=== PATIENT | female | born 1955 | race Caucasian/White ===

== ENCOUNTER 2018-01-08 07:43 | Observation (INO) ==
[2018-01-08] MEDS ORDERED: IOPAMIDOL 100 ML BOTTLE IV ONE (07:44)
--- NOTE | 2018-01-08 08:07 | Emergency Department Note ---
Altered Mental Status HPI - General Chief Complaint: Altered Mental Status Stated Complaint: Altered Mental Time Seen by Provider: 01/08/18 08:04 Source: patient Mode of arrival: ambulatory Limitations: no limitations - History of Present Illness HPI Narrative: This patient THIS morning with slurred speech and left facial droop. She has no other muscle weakness. She does have little numbness left side of her face. She does have a history of seizure disorders but has not had a seizure that her is aware of. Also has a history of cirrhosis and hepatitis C which was treated and may have been cured. - Related Data Home Medications Medication Instructions Recorded Confirmed Zonisamide [Zonegran] 600 mg PO QHS 01/08/18 01/08/18 Allergies Allergy/AdvReac Type Severity Reaction Status Date / Time ibuprofen Allergy Intermediate Hives Verified 01/08/18 07:48 IV contrast Allergy Severe Anaphylaxis Uncoded 01/08/18 07:48 Review of Systems All systems ED: reviewed and negative except as stated. Past Medical History - Past Medical History Medical history: Reports: liver disease (Hepatitis C and cirrhosis), seizures - Social History smoking status: Current every day smoker Physical Exam Limitations: no limitations General appearance: alert Head: atraumatic, normocephalic Eye: Present: normal appearance ENT: normal exam Neck: Present: normal inspection Chest: Present: normal inspection Respiratory: Present: normal lung sounds bilaterally Cardiovascular: Present: regular rate, normal rhythm, normal heart sounds Abdominal: Present: soft. Absent: distention, tenderness Neurological: Present: alert Cranial nerves: facial sensation (V): Abnormal Right, facial palsy (VII): Abnormal Right Motor strength - LUE: 5/5 Motor strength - RUE: 5/5 Motor strength - LLE: 5/5 Motor strength - RLE: 5/5 Psychiatric: Present: normal affect, normal mood Skin: Present: warm, dry, intact Course Vital Signs Respiratory Rate 24 H 01/08/18 07:44 Blood Pressure 152/90 01/08/18 07:44 Pulse Oximetry (%) 93 01/08/18 07:44 Respiratory Rate 24 H 01/08/18 07:44 Blood Pressure 152/90 01/08/18 07:51 Pulse Oximetry (%) 93 01/08/18 07:44 Altered Mental Status - MDM Narrative Medical decision making narrative: Patient's initial head CT was normal. Initially plan to do a CTA of head and neck that she has some sort of iodine allergy. We then attempted to do MRA MRI but she has a broken wire in her neck from a previous nerve stimulator and the radiologist feels uncomfortable doing that. So we will pretreat her with Solu- Medrol and Benadryl attempt to do the CTA of head and neck. Final disposition of this patient per Dr. Mireles. - Lab Data Result diagrams: 01/08/18 08:05 01/08/18 08:05 Lab Results 01/08/18 01/08/18 01/08/18 Range/Units 08:05 08:05 08:05 WBC 9.2 (4.5-11.0) K/mcL RBC 5.13 (4.00-5.20) M/mcL Hgb 14.7 (12.0-15.0) g/dL Hct 44.0 (36.0-48.0) % POC Hct 45.0 (36.0-48.0) % MCV 85.7 (80.0-100.0) fL MCH 28.7 (26.0-34.0) pg MCHC 33.5 (31.0-36.0) g/dL RDW 13.0 (11.5-14.5) % Plt Count 222 (140-440) K/mcL MPV 8.8 (7.4-10.4) fL Gran % 48.2 (38.0-78.0) % Lymph % (Auto) 38.7 (15.5-49.0) % [place] % (Auto) 11.0 (1.0-12.0) % Eos % (Auto) 1.5 (0.0-7.0) % Baso % (Auto) 0.6 (0.0-2.0) % Gran # 4.4 (1.8-8.0) K/mcL Lymph # (Auto) 3.6 (1.5-4.8) K/mcL [place] # (Auto) 1.0 H (0.1-0.9) K/mcL Eos # (Auto) 0.1 (0.0-0.7) K/mcL Baso # (Auto) 0.1 (0.0-0.3) K/mcL POC PT 13.5 (11.9-14.5) sec POC INR 1.1 (0.9-1.2) APTT TNP POC Sodium 144 (133-145) mmol/L Sodium 142 (133-145) mmol/L POC Potassium 4.7 (3.3-5.1) mmol/L Potassium 4.8 (3.3-5.1) mmol/L POC Chloride 105 (96-108) mmol/L Chloride 105 (96-108) mmol/L Carbon Dioxide 25 (22-30) mmol/L POC Total CO2 27 (22-30) mmol/L Anion Gap 12.0 (8-16) POC BUN 12 (8-23) mg/dl BUN 12 (8-23) mg/dl Creatinine 0.7 (0.6-1.1) mg/dl POC Creatinine 0.7 (0.6-1.1) mg/dl GFR Calculation 94 Glucose 107 H (70-105) mg/dL POC Glucose 110 H (70-105) mg/dL Calcium 9.7 (8.6-10.4) mg/dl POC WB Ioniz Calcium 1.17 (1.16-1.32) mmol/L Total Bilirubin 0.2 (0.0-1.0) mg/dL AST 23 (0-37) U/l ALT 23 (0-40) U/l Alkaline Phosphatase 80 (39-117) U/L Troponin T (0-0.03) ng/ml Total Protein 7.8 (5.9-8.4) gm/dL Albumin 4.1 (3.2-5.2) gm/dL Globulin 3.7 (2.2-3.7) gm/dL Albumin/Globulin Ratio 1.1 (1.0-2.3) 01/08/18 Range/Units 08:05 WBC (4.5-11.0) K/mcL RBC (4.00-5.20) M/mcL Hgb (12.0-15.0) g/dL Hct (36.0-48.0) % POC Hct (36.0-48.0) % MCV (80.0-100.0) fL MCH (26.0-34.0) pg MCHC (31.0-36.0) g/dL RDW (11.5-14.5) % Plt Count (140-440) K/mcL MPV (7.4-10.4) fL Gran % (38.0-78.0) % Lymph % (Auto) (15.5-49.0) % [place] % (Auto) (1.0-12.0) % Eos % (Auto) (0.0-7.0) % Baso % (Auto) (0.0-2.0) % Gran # (1.8-8.0) K/mcL Lymph # (Auto) (1.5-4.8) K/mcL [place] # (Auto) (0.1-0.9) K/mcL Eos # (Auto) (0.0-0.7) K/mcL Baso # (Auto) (0.0-0.3) K/mcL POC PT (11.9-14.5) sec POC INR (0.9-1.2) APTT POC Sodium (133-145) mmol/L Sodium (133-145) mmol/L POC Potassium (3.3-5.1) mmol/L Potassium (3.3-5.1) mmol/L POC Chloride (96-108) mmol/L Chloride (96-108) mmol/L Carbon Dioxide (22-30) mmol/L POC Total CO2 (22-30) mmol/L Anion Gap (8-16) POC BUN (8-23) mg/dl BUN (8-23) mg/dl Creatinine (0.6-1.1) mg/dl POC Creatinine (0.6-1.1) mg/dl GFR Calculation Glucose (70-105) mg/dL POC Glucose (70-105) mg/dL Calcium (8.6-10.4) mg/dl POC WB Ioniz Calcium (1.16-1.32) mmol/L Total Bilirubin (0.0-1.0) mg/dL AST (0-37) U/l ALT (0-40) U/l Alkaline Phosphatase (39-117) U/L Troponin T < 0.01 (0-0.03) ng/ml Total Protein (5.9-8.4) gm/dL Albumin (3.2-5.2) gm/dL Globulin (2.2-3.7) gm/dL Albumin/Globulin Ratio (1.0-2.3) Disposition Pt seen by [facility]ON [facility]ENDER/PA only: No Clinical Impression: Cerebrovascular accident Disposition: Still a Patient
--- NOTE | 2018-01-08 08:08 | Cat Scan Report ---
CLINICAL INFORMATION: Code stroke has altered mental status COMPARISON: None. TECHNIQUE: 2.5 mm helical slices were obtained in the skull base to vertex. Following reconstruction, axial reformatted images were reviewed at bone and parenchymal windows. The exam was performed using radiation dose optimization techniques including, but not limited to, automated exposure control, adjustment of the mA and/or kV according to patient size and use of iterative reconstruction technique. FINDINGS: The ventricles, sulci, fissures, and cisterns are normal in size and configuration for age. No extra-axial fluid collections are identified. The cerebrum, brainstem and cerebellum are unremarkable. There is no evidence of hemorrhage, mass effect, or edema. Bone windows show no osseous abnormality. IMPRESSION: Normal head CT without contrast. Interpreted and Authenticated by: Donovan Ko 01/08/18
[2018-01-08 08:39] LABS: Basophils # (Auto) 0.1 K/mcL (0.0-0.3); Basophils % (Auto) 0.6 % (0.0-2.0); Eosinophils # (Auto) 0.1 K/mcL (0.0-0.7); Eosinophils % (Auto) 1.5 % (0.0-7.0); Granulocytes % (Auto) 48.2 % (38.0-78.0); Lymphocytes # (Auto) 3.6 K/mcL (1.5-4.8); Lymphocytes % (Auto) 38.7 % (15.5-49.0); Mean Cell Volume 85.7 fL (80.0-100.0); Mean Corpuscular HGB Conc 33.5 g/dL (31.0-36.0); Mean Corpuscular Hemoglobin 28.7 pg (26.0-34.0); Platelet Count 222 K/mcL (140-440); RBC 5.13 M/mcL (4.00-5.20)
[2018-01-08 08:59] LABS: ALT/SGPT 23 U/l (0-40); Albumin 4.1 gm/dL (3.2-5.2); Albumin/Globulin Ratio 1.1 (1.0-2.3); Alkaline Phosphatase 80 U/L (39-117); Blood Urea Nitrogen 12 mg/dl (8-23)
[2018-01-08] MEDS ORDERED: diphenhydrAMINE 50 MG/ML VIAL IV ONE (09:04)
[2018-01-08] MEDS ORDERED: methylPREDNISolone SOD SUCC 125 MG/2 ML VIAL IV ONE (09:04)
--- NOTE | 2018-01-08 09:17 | XRay Report ---
CLINICAL INFORMATION: History of vagal stimulator - removed. Prescreening for MRI COMPARISON: None. FINDINGS: There is a 4 cm wire fragment and two tiny electrodes in the left deep cervical soft tissues. They're located in the vicinity of the left common carotid artery. There are also an additional three 9 mm vague foreign bodies in this region of uncertain nature. No other abnormality IMPRESSION: Metallic foreign bodies in the left common carotid artery vicinity. This precludes the use of of MR Interpreted and Authenticated by: Donovan Ko 01/08/18
[2018-01-08] MEDS ORDERED: LORazepam 2 MG/ML VIAL ONE (09:38)
[2018-01-08] MEDS ORDERED: LORazepam 2 MG/ML VIAL IV ONE (09:43)
[2018-01-08 09:57] LABS: Appearance,Urine HAZY; Bilirubin,Urine NEG (NEG); Color,Urine YELLOW; Glucose,Urine (UA) NEGATIVE (NEG); Leukocyte Esterase,Urine NEG /uL (NEG); Protein,Urine NEG (NEG); Specific Gravity,Urine 1.018 (1.000-1.035); Urine Blood NEG mg/dL (<0.03)
[2018-01-08] MEDS ORDERED: ATORVASTATIN 40 MG TABLET PO ONE (10:17)
[2018-01-08] MEDS ORDERED: CLOPIDOGREL 75 MG TABLET PO ONE (10:17)
[2018-01-08 10:37] LABS: Amphetamine Screen,Urine NONE DETECTED (NONDETECTED); Benzodiazepines Screen,Urine NONE DETECTED (NONDETECTED); Cocaine Screen,Urine NONE DETECTED (NONDETECTED); Opiate Screen,Urine NONE DETECTED (NONDETECTED); Oxycodone, Urine Screen NONE DETECTED (NONDETECTED)
--- NOTE | 2018-01-08 11:40 | Cat Scan Report ---
CLINICAL INFORMATION: Confusion - stroke symptoms COMPARISON: None. TECHNIQUE: 80 cc of Isovue-300 were injected intravenously , and using SmartPrep to maximize cerebral arterial opacification, 0.625 mm helical slices were obtained from the skull base through the cerebral vertex. Following reconstruction , sagittal, coronal and axial reformatted images were processed and reviewed at multiple windows and levels. 3D volume rendered and MIP images were acquired at a independent workstation. The exam was performed using radiation dose optimization techniques including, but not limited to, automated exposure control, adjustment of the mA and/or kV according to patient size and use of iterative reconstruction technique. FINDINGS: Embryonic origin of both posterior cerebral arteries off the supraclinoid ICA noted. The intracranial internal carotid, anterior and middle cerebral, intracranial vertebral, basilar and posterior cerebral arteries and their branches are well opacified and normal in contour and caliber. Superficial/deep cerebral veins and deep venous sinuses are normal. IMPRESSION: Normal Interpreted and Authenticated by: Donovan Ko 01/08/18
--- NOTE | 2018-01-08 11:56 | Cat Scan Report ---
CLINICAL INFORMATION: Confusion and extremity weakness. Question CVA COMPARISON: None. TECHNIQUE: The patient was premedicated with 100 mg of Solu-Medrol and 50 mg of Benadryl given IV because of the possible history of reaction iodinated contrast. Please there is no reaction after this procedure. 80 cc of Isovue-300 were injected intravenously, and using SmartPrep to maximize arterial opacification, 0.625 mm helical slices were obtained from the thoracic aortic arch through the andreafski of [place]. Following reconstruction, 1.25 mm sagittal, coronal and axial reformatted images were processed and reviewed at standard and bone algorithm/window. 3-D volume rendered, CPR and MIP images were processed using a [employer] work station.The exam was performed using radiation dose optimization techniques including, but not limited to, automated exposure control, adjustment of the mA and/or kV according to patient size and use of iterative reconstruction technique. FINDINGS: The thoracic aortic arch is normal in contour and caliber. Aortic branching is conventional. The brachycephalic, both subclavian, both vertebral, common and internal carotid arteries are widely patent. There is minimal calcific plaque in both carotid bifurcations. The 21 x 10 mm well-circumscribed inhomogeneous solid mass in the inferior left thyroid lobe. No other soft tissue abnormalities. Images through the upper lungs show mild centrilobular emphysema changes IMPRESSION: 1. The thoracic aortic arch, all carotid, subclavian, brachiocephalic and vertebral arteries are widely patent. Note: Left-sided vagal stimulator electrodes are less than 2 mm from the common carotid artery and will require removal in the event that MRI as felt to be necessary 2. Mild centrilobular emphysema changes 3. 21 x 10 mm ovoid solid nodule in the mid and inferior left thyroid lobe. Suggest thyroid ultrasound Interpreted and Authenticated by: Donovan Ko 01/08/18
[2018-01-08] MEDS ORDERED: POTASSIUM CHLORIDE 20 MEQ PACKET PO PRN (12:01)
[2018-01-08] MEDS ORDERED: MAGNESIUM HYDROXIDE 30 ML ORAL.SUSP PO PRN (12:01)
[2018-01-08] MEDS ORDERED: POLYETHYLENE GLYCOL 3350 17 GM PACKET PO PRN (12:01)
[2018-01-08] MEDS ORDERED: ACETAMINOPHEN 1,000 MG/100 ML BOTTLE IV PRN (12:01)
[2018-01-08] MEDS ORDERED: MAGNESIUM SULFATE 2 GM/50 ML BAG IV PRN (12:01)
[2018-01-08] MEDS ORDERED: 0.9 % SODIUM CHLORIDE 1,000 ML IV SCH (12:01)
[2018-01-08] MEDS ORDERED: ONDANSETRON 4 MG/2 ML VIAL IV PRN (12:01)
[2018-01-08] MEDS ORDERED: ACETAMINOPHEN 325 MG TABLET PO PRN (12:01)
[2018-01-08] MEDS ORDERED: traZODone HCL 50 MG TABLET PO PRN (12:01)
[2018-01-08] MEDS: 0.9 % SODIUM CHLORIDE 10 ML SYRINGE IV SCH ×2 (12:30→20:29)
--- NOTE | 2018-01-08 12:45 | Internal Med History&Physical ---
Medical - H&P: HPI Patient information: Note initiated : 01/08/18 at 12:40 pm Service Date, if different from initiated Date: [] Patient: Paris Rea 62 y/o F admitted on 01/08/18 for Altered Mental Status. Chief Complaint: [] Chief complaint: left-sided facial weakness and slurred speech History of present illness: Ms. Rea is a 62 year old right-handed female who is visiting her brother-in- law from [place] along with . She was in baseline state of health until this morning she woke up with left-sided facial droop and left-sided weakness. She had associated speech slurring. Patient has been noticing worsening headache over the last few days. She carries a history of migraine. Due to a bowel stroke like symptoms she was brought in to [facility]. Initial workup with a CT head and CT angiogram head and neck was unremarkable. NIH score was 6. Patient was started on statin and Plavix due to suspected aspirin hypersensitivity . Hospitalist service was consulted for admission and further evaluation. At the time of evaluation patient is accompanied with her Kannan. She is very lethargic and distress from right sided headache. She however is able to answer most questions. History was obtained from patient's . Patient denies chest pain but endorses to right-sided headache 4 out 10-8 out of 10 with no associated photophobia or visual aura . She she feels the headache is similar to migraine. She denies tearing neck pain. She denies losing consciousness. Denies bowel or bladder incontinence. Denies double vision cough or choking episodes. Patient clearly denies prior similar episodes. She has been successfully treated with hepatitis C however has developed hep C related cirrhosis over time. She also endorses to history of seizures with recurrent breakthrough seizures 2 or 3 times a month. She is currently taking zonisamide 200 mg at at bedtime against the prescribed dose of 600 at bedtime due to side effects. On further questioning patient endorses to allergies to ibuprofen but not to aspirin. Subsequently 325 mg of aspirin administered. Review of systems 10 point review of system was performed and is negative except ones discussed above Medical - H&P: PMH Medical history: History of seizure disorder hepatitis C-status post treatment Cirrhosis secondary to hep C Nicotine dependence Generalized deconditioning and weakness Pertinent family history: Mother Parkinson's father mental health disorder Social history: Smokes three-quarter pack a day No history of alcoholism to Kannan Lives in [place] and transitioning to [facility] Smoking status: Current every day smoker Have you smoked in the last 12 months: Yes (three-quarter pack a day) Medical - H&P: Meds Home Medications Medication Instructions Recorded Confirmed Type Zonisamide [Zonegran] 200 mg PO QHS 01/08/18 01/08/18 History Allergies Allergy/AdvReac Type Severity Reaction Status Date / Time ibuprofen Allergy Intermediate Hives Verified 01/08/18 07:48 IV contrast Allergy Severe Anaphylaxis Uncoded 01/08/18 07:48 Medical - H&P: Exam - Constitutional Vitals: Temp Pulse Resp BP Pulse Ox 98.3 F 81 16 128/83 93 01/08/18 11:51 01/08/18 11:58 01/08/18 11:58 01/08/18 11:58 01/08/18 11:58 General appearance: moderate distress, morbidly obese Exam: Anxious and fidgety Pupils symmetric Eye movements symmetric Oral cavity dry No ear discharge Head normocephalic Left-sided facial droop Neck no lymphadenopathy or bruit S1-S2 regular rhythm No murmur Chest clear to auscultation Abdomen minimally tender right lower quadrant but no rebound Nondistended abdomen Lower extremity no cyanosis clubbing No joint swelling or erythema Skin no suspicious lesion Psychiatric anxious fatigued fidgety Neuro-left sided facial droop Left upper and lower extremity grade 4 strength Abnormal sensation left upper and lower extremities Negative cerebellar signs Cranial nerves-abnormal seventh cranial nerve Medical - H&P: Reslt - Labs CBC & Chem 7: 01/08/18 08:05 01/08/18 08:05 Labs: Short CBC 01/08/18 Range/Units 08:05 WBC 9.2 (4.5-11.0) K/mcL Hgb 14.7 (12.0-15.0) g/dL Hct 44.0 (36.0-48.0) % Plt Count 222 (140-440) K/mcL BMP 01/08/18 08:05 Sodium 142 Potassium 4.8 Chloride 105 Carbon Dioxide 25 BUN 12 Creatinine 0.7 Glucose 107 H Calcium 9.7 Cardiac Enzymes 01/08/18 Range/Units 08:05 Troponin T < 0.01 (0-0.03) ng/ml Liver Function 01/08/18 Range/Units 08:05 Total Bilirubin 0.2 (0.0-1.0) mg/dL AST 23 (0-37) U/l ALT 23 (0-40) U/l Alkaline Phosphatase 80 (39-117) U/L Albumin 4.1 (3.2-5.2) gm/dL Urine 01/08/18 Range/Units 09:17 Urine Color Yellow Urine Appearance Hazy Urine pH 5.0 (5.0-9.0) Ur Specific [place] 1.018 (1.000-1.035) Urine Protein Neg (NEG) mg/dL Urine Glucose (UA) Negative (NEG) mg/dL Medical - H&P: A/P (1) Acute ischemic right MCA stroke Current visit: Yes Status: Acute * Acute ischemic right MCA CVA- NIH score 6 . Beyond the window for thrombolysis. MRI could not be performed due to neck hardware. CT head/CT angiogram unremarkable. Continue aspirin and statin/physical therapy and speech therapy eval. Echocardiogram to evaluate for left atrial thrombus * History of migraine-continue as needed Tylenol * History of seizure disorder continue zonisamide 200 at bedtime * History of cirrhosis secondary to hepatitis C-well compensated * Full code * Prophylaxis heparin Plan * Telemetry admission * Neuro checks * Stroke workup as above * Aspirin statin * Pre-existing medical condition management and home meds * Aggressive PT OT Medical - H&P: Qual - Stroke Symptom Onset Unknown: Yes - VTE Deep Vein Thrombosis/Pulmonary Embolism Present on Admission: No
[2018-01-08] MEDS: ASPIRIN 325 MG ENTERIC COATED TABLET PO SCH (14:50)
[2018-01-08] MEDS ORDERED: MEPERIDINE 50 MG TABLET PO PRN (19:23)
[2018-01-08] MEDS: HEPARIN 5,000 UNIT/ML VIAL SQ SCH (20:17)
[2018-01-08] MEDS: DOCUSATE SODIUM 100 MG CAPSULE PO SCH (20:29)
[2018-01-08] MEDS ORDERED: ZONISAMIDE 100 MG PO SCH (21:00)
[2018-01-08] MEDS ORDERED: SENNOSIDES/DOCUSATE SODIUM 1 TAB TABLET PO SCH (21:00)
[2018-01-08] MEDS ORDERED: ATORVASTATIN 20 MG TABLET PO SCH (21:00)
[2018-01-09 05:50] LABS: Mean Cell Volume 87.2 fL (80.0-100.0); Mean Corpuscular HGB Conc 33.5 g/dL (31.0-36.0); Mean Corpuscular Hemoglobin 29.3 pg (26.0-34.0); Platelet Count 221 K/mcL (140-440); RBC 4.41 M/mcL (4.00-5.20); Red Cell Distribution Width 12.9 % (11.5-14.5)
[2018-01-09 05:57] LABS: ALT/SGPT 19 U/l (0-40); Albumin 3.6 gm/dL (3.2-5.2); Albumin/Globulin Ratio 1.1 (1.0-2.3); Alkaline Phosphatase 70 U/L (39-117); Bilirubin,Direct < 0.2 mg/dL (0.0-0.3); Blood Urea Nitrogen 15 mg/dl (8-23); Gamma Glutamyl Transpeptidase 17 U/L (5-36); HDL Cholesterol 39 mg/dl (>40); LDL Cholesterol,Calculated 137 mg/dl (SEE CHART); Uric Acid 4.1 mg/dL (2.5-8.0)
[2018-01-09 06:41] LABS: Lymphocytes % 21 % (15-49); Monocytes % (Manual) 7 % (1-12); Platelet Estimate NORMAL (NORMAL); RBC Morphology NORMAL (NORMAL); Segmented Neutrophils % 71 % (38-78)
[2018-01-09] MEDS: 0.9 % SODIUM CHLORIDE 10 ML SYRINGE IV SCH (07:47)
[2018-01-09] MEDS ORDERED: MULTIVIT,THER IRON,CA,FA & MIN 1 TABLET PO SCH (09:00)
--- NOTE | 2018-01-09 09:38 | Discharge Summary ---
Medical - DS: Prov Patient information: Note initiated : 01/09/18 at 9:36 am Service Date, if different from initiated Date: [] Patient: Paris Rea 62 y/o F admitted on 01/08/18 for Altered Mental Status. Chief Complaint: [] Date of admission: 01/08/18 11:51 Discharge date: 01/09/18 Consults: 01/08/18 10:14 Consult to Physician [CONS] Stat Comment: Consulting Provider: Garret Kern Reason For Exam: Physician to Consult Medical - DS: Meds - Discharge Medications Prescriptions: Aspirin [Ecotrin] 325 mg PO DAILY #60 tab.ec Atorvastatin [Lipitor] 40 mg PO HS #30 tab Active and Home Medications: Home Medications Zonisamide [Zonegran] 200 mg PO QHS 01/08/18 [History Confirmed 01/08/18 Last Taken 01/07/18 21:00] Medical - DS: Hosp Hospital course: Discharge diagnosis * Acute ischemic right MCA CVA based on clinical findings- NIH score 6 on admission. Beyond the window for thrombolysis. MRI could not be performed due to neck hardware. CT head/CT angiogram unremarkable. Symptoms improving. Continue aspirin and statin and outpatient physical therapy and speech therapy eval. Echo unremarkable * History of migraine-continue as needed Tylenol as outpatient * Hyperlipidemia-start 40 atorvastatin daily * History of seizure disorder continue zonisamide 600 at bedtime. Recommend follow-up with neurology as outpatient on discharge * History of cirrhosis secondary to hepatitis C-well compensated * Full code Brief hospital course Ms. Rea is a 62 year old right-handed female who is visiting her brother-in- law from [place] along with . She was in baseline state of health until this morning she woke up with left-sided facial droop and left-sided weakness. She had associated speech slurring. Patient has been noticing worsening headache over the last few days. She carries a history of migraine. Due to a bowel stroke like symptoms she was brought in to [facility] ER. Initial workup with a CT head and CT angiogram head and neck was unremarkable. NIH score was 6. Patient was started on statin and Plavix due to suspected aspirin hypersensitivity . Hospitalist service was consulted for admission and further evaluation. At the time of evaluation patient is accompanied with her Kannan. She is very lethargic and distress from right sided headache. She however is able to answer most questions. History was obtained from patient's . Patient denies chest pain but endorses to right-sided headache 4 out 10-8 out of 10 with no associated photophobia or visual aura . She she feels the headache is similar to migraine. She denies tearing neck pain. She denies losing consciousness. Denies bowel or bladder incontinence. Denies double vision cough or choking episodes. Patient clearly denies prior similar episodes. She has been successfully treated with hepatitis C however has developed hep C related cirrhosis over time. She also endorses to history of seizures with recurrent breakthrough seizures 2 or 3 times a month. She is currently taking zonisamide 200 mg at at bedtime against the prescribed dose of 600 at bedtime due to side effects. On further questioning patient endorses to allergies to ibuprofen but not to aspirin. Subsequently 325 mg of aspirin administered. January 09-patient doing remarkably better. Ambulating and undergoing physical therapy. No swallowing difficulty. Improving weakness on left side. However not fully resolved. Discharging with aspirin and statin and recommendations outpatient physical therapy for post stroke rehabilitation.. Elevated LDL at 137. Recommend follow-up with neurology for management of intermittent seizure and post stroke follow-up. Schedule appointment with PCP on discharge. Detailed instructions and medication recommendations as below Discharge diagnosis: . - Time Spent with Patient Total time spent providing and/or coordinating discharge services: Greater than 30 minutes Medical - DS: Exam - Constitutional Vitals: Vital Signs Temp Pulse Pulse Resp BP BP Pulse Ox 01/09/18 07:25 96 01/09/18 04:05 97.7 F 18 105/61 96 01/09/18 00:06 108/61 01/09/18 00:05 98.9 F 77 18 108/61 93 01/08/18 19:39 98.1 F 85 18 116/66 94 01/08/18 16:11 116/70 01/08/18 16:01 98.0 F 87 18 116/70 93 01/08/18 14:01 80 16 127/82 96 01/08/18 13:01 124/92 01/08/18 12:01 74 125/87 96 01/08/18 11:58 81 16 128/83 93 01/08/18 11:51 98.3 F 78 16 125/87 97 01/08/18 11:46 79 15 129/82 93 01/08/18 11:45 81 16 93 01/08/18 11:31 80 12 128/83 93 01/08/18 11:16 14 116/84 01/08/18 11:15 13 127/84 01/08/18 11:01 13 127/84 01/08/18 10:46 13 118/85 01/08/18 10:31 79 12 135/91 93 01/08/18 10:16 81 22 132/98 94 01/08/18 10:13 86 18 96 01/08/18 10:01 82 19 131/82 97 01/08/18 09:46 83 16 97 01/08/18 09:44 91 H 15 121/78 98 Intake and Output 01/08/18 01/09/18 01/09/18 21:59 05:59 13:59 Intake Total 300 / 300 640 / 640 120 / 120 Output Total 200 / 200 350 / 350 300 / 300 Balance 100 / 100 290 / 290 -180 / -180 Intake: Oral 300 / 300 360 / 360 120 / 120 GI Tube Flush 280 / 280 Output: Void Amount 200 / 200 350 / 350 300 / 300 Other: Meal Jello Breakfast Percent of Meal Consumed 100% 100% Feeding Ability Assist with Tray Set Up Weight 184 lb 1.6 oz Medical - DS: Data Labs on day of discharge: Labs from last 24 hours 01/09/18 01/09/18 01/08/18 03:54 03:54 09:51 WBC 16.4 H RBC 4.41 Hgb 12.9 Hct 38.5 MCV 87.2 MCH 29.3 MCHC 33.5 RDW 12.9 Plt Count 221 MPV 9.0 Total Counted 100 Seg Neutrophils % 71 Band Neutrophils % Not Reportable Lymphocytes % 21 Monocytes % (Manual) 7 Reactive Lymphocytes 1 Platelet Estimate Normal RBC Morphology Normal APTT 30 Sodium 139 Potassium 4.3 Chloride 105 Carbon Dioxide 21 L Anion Gap 13.0 BUN 15 Creatinine 0.8 GFR Calculation 80 Glucose 153 H Uric Acid 4.1 Calcium 9.1 Phosphorus 3.9 Magnesium 1.9 Total Bilirubin 0.2 Direct Bilirubin < 0.2 GGT 17 AST 20 ALT 19 Alkaline Phosphatase 70 Lactate Dehydrogenase 237 Total Protein 6.8 Albumin 3.6 Globulin 3.2 Albumin/Globulin Ratio 1.1 Triglycerides 92 Cholesterol 194 LDL Cholesterol, Calc 137 H Non-HDL Cholesterol 155 H HDL Cholesterol 39 L Urine Color Urine Appearance Urine pH Ur Specific [place] Urine Protein Urine Glucose (UA) Urine Ketones Urine Occult Blood Urine Nitrate Urine Bilirubin Urine Urobilinogen Ur Leukocyte Esterase Ur Culture Indicated? Urine Opiates Screen Ur Opiates Confirm Ur Oxycodone Screen Urine Methadone Screen Ur Methadone Confirm Ur Barbiturates Screen Ur Barbiturate Confirm Ur Phencyclidine Scrn Urine PCP Confirm Ur Amphetamines Screen U Amphetamines Confirm U Benzodiazepines Scrn U Benzodiazepine Confm Urine Cocaine Screen Urine Cocaine Confirm U Cannabinoids Confirm U Marijuana (THC) Screen Ethyl Alcohol 01/08/18 01/08/18 01/08/18 09:17 09:17 08:05 WBC RBC Hgb Hct MCV MCH MCHC RDW Plt Count MPV Total Counted Seg Neutrophils % Band Neutrophils % Lymphocytes % Monocytes % (Manual) Reactive Lymphocytes Platelet Estimate RBC Morphology APTT Sodium Potassium Chloride Carbon Dioxide Anion Gap BUN Creatinine GFR Calculation Glucose Uric Acid Calcium Phosphorus Magnesium Total Bilirubin Direct Bilirubin GGT AST ALT Alkaline Phosphatase Lactate Dehydrogenase Total Protein Albumin Globulin Albumin/Globulin Ratio Triglycerides Cholesterol LDL Cholesterol, Calc Non-HDL Cholesterol HDL Cholesterol Urine Color Yellow Urine Appearance Hazy Urine pH 5.0 Ur Specific [place] 1.018 Urine Protein Neg Urine Glucose (UA) Negative Urine Ketones Neg Urine Occult Blood Neg Urine Nitrate Neg Urine Bilirubin Neg Urine Urobilinogen 2.0 A Ur Leukocyte Esterase Neg Ur Culture Indicated? No Urine Opiates Screen None detected Ur Opiates Confirm Not Reportable Ur Oxycodone Screen None detected Urine Methadone Screen None detected Ur Methadone Confirm Not Reportable Ur Barbiturates Screen None detected Ur Barbiturate Confirm Not Reportable Ur Phencyclidine Scrn None detected Urine PCP Confirm Not Reportable Ur Amphetamines Screen None detected U Amphetamines Confirm Not Reportable U Benzodiazepines Scrn None detected U Benzodiazepine Confm Not Reportable Urine Cocaine Screen None detected Urine Cocaine Confirm Not Reportable U Cannabinoids Confirm Not Reportable U Marijuana (THC) Screen None detected Ethyl Alcohol < 0.010 Medical - DS: A/P - Patient/Caregiver Discharge Instructions Activity: as per physical therapy Diet: Regular Diet Additional Instructions: Please fill out the paperwork and mail it in or bring it back to the hospital, for our New Patient Coordinator to help get you established with a Primary Care Physician. Appointment scheduled for a one time visit with Dr. Lane at [facility] Follow-up with Neurology at [facility] earliest possible appointment for post stroke and intermittent seizures Continue aspirin and statin for stroke prophylaxis as advised Continue aggressive PT OT as outpatient All meals on chair sitting upright at 90 degrees to prevent aspiration Return to ER if worsening weakness/seizure Refrain from smoking and alcohol Continue diet and activity as advised Discussed importance of medication adherence Please review medication list with patient prior to discharge Portions of this chart may have been created with [employer] voice recognition software. Occasional wrong-word or ?sound-like? substitutions may have occurred due to the inherent limitations of voice recognition software. Please read the chart carefully and recognize, using context, where the substitutions have occurred. CC- PCP Prescriptions: Aspirin [Ecotrin] 325 mg PO DAILY #60 tab.ec Atorvastatin [Lipitor] 40 mg PO HS #30 tab - Problem Maintenance (1) Acute ischemic right MCA stroke Status: Acute - Follow up Plan Follow up with: Regulo Lane ARNP [Physician] - 01/12/18 1:20 pm Mateo Styles MD [Physician] - (Your information has been faxed to Dr. Mateo Styles, they will call you with an appointment after reviewing your chart. If you do not hear from them within 1 week, please call to schedule an appointment.) Disposition: Home, Self-Care Prognosis: Fair Rehab Potential: Fair I certify that the patient requires SNF services: No Overall status at discharge: patient is progressing back to baseline Medical - DS: Qual - VTE Deep Vein Thrombosis/Pulmonary Embolism Present on Admission: No
[2018-01-09] MEDS: HEPARIN 5,000 UNIT/ML VIAL SQ SCH (09:51)
[2018-01-09] MEDS: ASPIRIN 325 MG ENTERIC COATED TABLET PO SCH (09:51)
[2018-01-09] MEDS: DOCUSATE SODIUM 100 MG CAPSULE PO SCH (09:51)
== END 2018-01-09 10:45 | disposition home or self-care (01) ==
LOC: ED 07:43 → ICU 07:43
PROVIDERS: ADMIT Internal Medicine; ATTEND Internal Medicine